=== PATIENT | female | born 1935 | race Caucasian/White ===

== ENCOUNTER 2021-02-13 19:39 | Inpatient (IN) ==
[2021-02-13] MEDS ORDERED: Ondansetron 4 MG/2 ML VIAL IVP PRN (21:46)
[2021-02-13] MEDS ORDERED: Naloxone 0.4 MG/ML INJ IVP PRN (21:46)
[2021-02-13] MEDS ORDERED: Acetaminophen 325 MG TABLET PO PRN (21:46)
[2021-02-13] MEDS ORDERED: Potassium Chloride Elixir 20 MEQ/15 ML UDC PO ONE (21:58)
[2021-02-13] MEDS ORDERED: 0.9 % Sodium Chloride 1,000 ML IVC SCH (22:00)
[2021-02-13] MEDS ORDERED: Perflutren Lipid Microsphere 1.3 ML in 0.9 % Sodium Chloride 8.7 ML IVP PRN (22:27)
[2021-02-13 22:45] LABS: INR 1.2; Prothrombin Time 13.5 Seconds (9.4-12.1)
[2021-02-14] MEDS ORDERED: *HR* Dextrose 50 % in Water (Vial) 50 ML VIAL IVP PRN (00:42)
[2021-02-14] MEDS ORDERED: D5% in Water 1,000 ML IVC PRN (00:42)
[2021-02-14] MEDS ORDERED: Dextrose Gel 15 GM/37.5 ML TUBE PO PRN ×2 (00:42)
[2021-02-14] MEDS: Melatonin 3 MG TABLET PO PRN ×2 (00:45→22:44)
[2021-02-14] MEDS: Acetaminophen 325 MG TABLET PO PRN ×3 (00:45→20:10)
[2021-02-14] MEDS: Potassium Chloride Elixir 20 MEQ/15 ML UDC PO ONE ×2 (00:45→00:47)
[2021-02-14 05:07] LABS: Mean Corpuscular Volume 93.6 fL (83.0-100.0)
[2021-02-14 05:09] LABS: Hematocrit 42.3 % (35.3-44.9); Hemoglobin 13.2 g/dL (11.5-15.4); Mean Corpuscular HGB Conc 31.2 g/dL (31.6-35.5); Mean Corpuscular Hemoglobin 29.2 pg (28.0-33.3); Red Blood Count 4.52 M/mcL (3.82-4.97); Red Cell Distribution Width 14.6 % (11.5-14.5); White Blood Count 3.7 K/mcL (4.3-11.1)
[2021-02-14 05:25] LABS: BUN/Creatinine Ratio 21 (6-26); Blood Urea Nitrogen 18 mg/dL (8-23); Calcium 8.8 mg/dL (8.6-10.3); Carbon Dioxide 23 mEq/L (23-29); Chloride 108 mEq/L (98-107); Glucose 274 mg/dL (70-105); Lactate Dehydrogenase 200 Units/L (140-271); Osmolality,Calculated 300 (280-300); Potassium 3.8 mEq/L (3.5-5.1); Sodium 139 mEq/L (136-145); eGFR For African Americans > 60 (> 60); eGFR For Non-African Americans > 60 (> 60)
[2021-02-14 06:15] LABS: Estimated Average Glucose 183 mg/dl
[2021-02-14] MEDS: cefTRIAXone 1,000 MG in 0.9 % Sodium Chloride Mini Bag 100 ML IVPB SCH (10:04)
[2021-02-14] MEDS: Azithromycin 500 MG in 0.9 % Sodium Chloride 250 ML IVPB SCH (10:04)
[2021-02-14] MEDS: Nystatin POWDER 30 GM BOTTLE TP SCH ×2 (10:23→20:53)
[2021-02-14] MEDS: Insulin LISPRO 300 UNITS/3 ML VIAL SUBQ SCH ×3 (10:32→17:33)
[2021-02-14] MEDS ORDERED: Baclofen 10 MG TABLET PO PRN (17:32)
[2021-02-14] MEDS: Primidone 50 MG TABLET PO SCH (20:09)
[2021-02-14] MEDS: Mirtazapine 15 MG TABLET PO SCH (20:10)
[2021-02-14] MEDS: Apixaban 5 MG TABLET PO SCH (20:11)
[2021-02-14] MEDS: Levothyroxine 25 MCG TABLET PO SCH (20:11)
[2021-02-14] MEDS: carvediloL 25 MG TABLET PO SCH (20:53)
[2021-02-14] MEDS: Insulin DETEMIR 100 UNIT/ML X5UNITS SUBQ SCH ×2 (20:54→22:24)
[2021-02-15] MEDS: Insulin LISPRO 300 UNITS/3 ML VIAL SUBQ SCH ×3 (08:30→16:50)
[2021-02-15] MEDS: carvediloL 25 MG TABLET PO SCH ×3 (09:00→16:53)
[2021-02-15] MEDS: Insulin DETEMIR 100 UNIT/ML X5UNITS SUBQ SCH ×2 (09:00→23:13)
[2021-02-15] MEDS: Fluorometholone OPTH 5 ML BOTTLE LEFT EYE SCH (11:44)
[2021-02-15] MEDS: Apixaban 5 MG TABLET PO SCH ×3 (11:44→23:10)
[2021-02-15] MEDS: Famotidine 20 MG TABLET PO SCH ×2 (11:44→16:54)
[2021-02-15] MEDS: Azithromycin 500 MG in 0.9 % Sodium Chloride 250 ML IVPB SCH ×2 (11:45→16:49)
[2021-02-15] MEDS: Nystatin POWDER 30 GM BOTTLE TP SCH ×3 (11:45→23:11)
[2021-02-15] MEDS: cefTRIAXone 1,000 MG in 0.9 % Sodium Chloride Mini Bag 100 ML IVPB SCH ×2 (11:46→16:48)
[2021-02-15] MEDS ORDERED: Benzonatate 100 MG CAPSULE PO PRN (17:14)
[2021-02-15] MEDS: Acetaminophen 325 MG TABLET PO PRN ×2 (18:26→23:10)
[2021-02-15] MEDS: Ipratropium 1 PUFF INHALER IH SCH (20:03)
[2021-02-15 20:06] LABS: Albumin 2.8 g/dL (3.5-5.7); Albumin/Globulin Ratio 1.2 (1.1-2.2); Bilirubin,Direct 0.1 mg/dL (0.0-0.2); Bilirubin,Indirect 0.2 mg/dL (0.0-1.0); Bilirubin,Total 0.3 mg/dL (0.3-1.0); Globulin 2.3 g/dL (2.4-3.5); Total Protein 5.1 g/dL (6.4-8.9)
[2021-02-15] MEDS: Mirtazapine 15 MG TABLET PO SCH (23:09)
[2021-02-15] MEDS: Primidone 50 MG TABLET PO SCH (23:09)
[2021-02-15] MEDS: Levothyroxine 25 MCG TABLET PO SCH (23:10)
[2021-02-15] MEDS: Melatonin 3 MG TABLET PO PRN (23:10)
[2021-02-16] MEDS: Ipratropium 1 PUFF INHALER IH SCH ×7 (00:08→23:29)
[2021-02-16] MEDS ORDERED: Haloperidol Lactate 5 MG/ML VIAL IM ONE (04:11)
[2021-02-16] MEDS ORDERED: *HR* LORazepam 2 MG/ML VIAL IVP ONE (04:35)
[2021-02-16] MEDS ORDERED: Remdesivir 200 MG in 0.9 % Sodium Chloride 100 ML IVPB ONE (07:40)
[2021-02-16] MEDS: Insulin LISPRO 300 UNITS/3 ML VIAL SUBQ SCH ×2 (08:30→11:28)
[2021-02-16] MEDS: cefTRIAXone 1,000 MG in 0.9 % Sodium Chloride Mini Bag 100 ML IVPB SCH (11:25)
[2021-02-16] MEDS: Azithromycin 500 MG in 0.9 % Sodium Chloride 250 ML IVPB SCH (11:26)
[2021-02-16] MEDS: Fluorometholone OPTH 5 ML BOTTLE LEFT EYE SCH (11:28)
[2021-02-16] MEDS: Apixaban 5 MG TABLET PO SCH ×2 (11:28→20:03)
[2021-02-16] MEDS: carvediloL 25 MG TABLET PO SCH (11:28)
[2021-02-16] MEDS: Insulin DETEMIR 100 UNIT/ML X5UNITS SUBQ SCH ×2 (11:28→22:30)
[2021-02-16] MEDS: Famotidine 20 MG TABLET PO SCH (11:29)
[2021-02-16] MEDS: Nystatin POWDER 30 GM BOTTLE TP SCH ×2 (11:29→22:30)
[2021-02-16 11:49] LABS: Hemoglobin 12.1 g/dL (11.5-15.4); Mean Corpuscular HGB Conc 31.3 g/dL (31.6-35.5); Mean Corpuscular Volume 93.7 fL (83.0-100.0)
[2021-02-16 11:51] LABS: Hematocrit 38.7 % (35.3-44.9); Immature Granulocytes % 0.5 % (0-4); Immature Platelets 7.5 % (1.1-6.1); Lymphocytes # 0.4 K/mcL (0.6-4.6); Lymphocytes % 9.4 %; Mean Corpuscular Hemoglobin 29.3 pg (28.0-33.3); Mean Platelet Volume 12.5 fL (9.4-12.4); Monocytes # 0.2 K/mcL (0.0-1.3); Neutrophils # 3.2 K/mcL (1.6-8.9); Platelet Count 114 K/mcL (140-400); Red Blood Count 4.13 M/mcL (3.82-4.97); Red Cell Distribution Width 14.8 % (11.5-14.5); Segmented Neutrophils % 86.1 %; White Blood Count 3.7 K/mcL (4.3-11.1)
[2021-02-16] MEDS: Mirtazapine 15 MG TABLET PO SCH (20:03)
[2021-02-16] MEDS: Primidone 50 MG TABLET PO SCH (20:03)
[2021-02-16] MEDS: Levothyroxine 25 MCG TABLET PO SCH (20:03)
[2021-02-16 23:06] LABS: Albumin 2.9 g/dL (3.5-5.7); Albumin/Globulin Ratio 1.1 (1.1-2.2); Bilirubin,Direct 0.1 mg/dL (0.0-0.2); Bilirubin,Indirect 0.3 mg/dL (0.0-1.0); Bilirubin,Total 0.4 mg/dL (0.3-1.0); Globulin 2.7 g/dL (2.4-3.5); Total Protein 5.6 g/dL (6.4-8.9)
[2021-02-16 23:08] LABS: BUN/Creatinine Ratio 31 (6-26); Blood Urea Nitrogen 21 mg/dL (8-23); Calcium 9.1 mg/dL (8.6-10.3); Carbon Dioxide 23 mEq/L (23-29); Chloride 107 mEq/L (98-107); Glucose 298 mg/dL (70-105); Osmolality,Calculated 304 (280-300); Potassium 3.4 mEq/L (3.5-5.1); Sodium 140 mEq/L (136-145); eGFR For African Americans > 60 (> 60); eGFR For Non-African Americans > 60 (> 60)
[2021-02-17] MEDS: Ipratropium 1 PUFF INHALER IH SCH ×5 (03:25→21:02)
[2021-02-17 06:52] LABS: Basophils % 0.1 %; Hematocrit 38.1 % (35.3-44.9); Hemoglobin 12.2 g/dL (11.5-15.4); Immature Granulocytes % 0.7 % (0-4); Lymphocytes # 0.3 K/mcL (0.6-4.6); Lymphocytes % 4.4 %; Mean Corpuscular Hemoglobin 29.8 pg (28.0-33.3); Mean Corpuscular Volume 93.2 fL (83.0-100.0); Mean Platelet Volume 11.5 fL (9.4-12.4); Monocytes # 0.2 K/mcL (0.0-1.3); Monocytes % 2.9 %; Neutrophils # 6.7 K/mcL (1.6-8.9); Platelet Count 149 K/mcL (140-400); Red Blood Count 4.09 M/mcL (3.82-4.97); Red Cell Distribution Width 14.6 % (11.5-14.5); Segmented Neutrophils % 91.9 %; White Blood Count 7.3 K/mcL (4.3-11.1)
[2021-02-17 07:01] LABS: Alanine Aminotransferase 16 Units/L (7-52); Albumin 2.9 g/dL (3.5-5.7); Albumin/Globulin Ratio 1.1 (1.1-2.2); Alkaline Phosphatase 48 Units/L (34-104); Aspartate Amino Transferase 28 Units/L (13-39); BUN/Creatinine Ratio 31 (6-26); Bilirubin,Direct 0.2 mg/dL (0.0-0.2); Bilirubin,Indirect 0.1 mg/dL (0.0-1.0); Bilirubin,Total 0.3 mg/dL (0.3-1.0); Blood Urea Nitrogen 20 mg/dL (8-23); Calcium 9.1 mg/dL (8.6-10.3); Carbon Dioxide 25 mEq/L (23-29); Chloride 106 mEq/L (98-107); Globulin 2.6 g/dL (2.4-3.5); Glucose 235 mg/dL (70-105); Osmolality,Calculated 298 (280-300); Potassium 3.3 mEq/L (3.5-5.1); Sodium 139 mEq/L (136-145); Total Protein 5.5 g/dL (6.4-8.9); eGFR For African Americans > 60 (> 60); eGFR For Non-African Americans > 60 (> 60)
[2021-02-17] MEDS ORDERED: Remdesivir 100 MG in 0.9 % Sodium Chloride 100 ML IVPB SCH (08:00)
[2021-02-17] MEDS: cefTRIAXone 1,000 MG in 0.9 % Sodium Chloride Mini Bag 100 ML IVPB SCH (08:24)
[2021-02-17] MEDS: Apixaban 5 MG TABLET PO SCH ×2 (08:25→23:11)
[2021-02-17] MEDS: Famotidine 20 MG TABLET PO SCH ×2 (08:25→17:06)
[2021-02-17] MEDS: carvediloL 25 MG TABLET PO SCH ×3 (08:25→17:06)
[2021-02-17] MEDS: Fluorometholone OPTH 5 ML BOTTLE LEFT EYE SCH (08:27)
[2021-02-17] MEDS: Insulin LISPRO 300 UNITS/3 ML VIAL SUBQ SCH ×4 (08:28→17:25)
[2021-02-17] MEDS: Nystatin POWDER 30 GM BOTTLE TP SCH ×2 (08:29→23:11)
[2021-02-17] MEDS: Remdesivir 100 MG in 0.9 % Sodium Chloride 100 ML IVPB SCH (11:23)
[2021-02-17] MEDS: Insulin DETEMIR 100 UNIT/ML X5UNITS SUBQ SCH ×2 (11:24→23:11)
[2021-02-17] MEDS ORDERED: Haloperidol Lactate 5 MG/ML VIAL IVP ONE ×2 (12:48→14:13)
[2021-02-17] MEDS: Azithromycin 500 MG in 0.9 % Sodium Chloride 250 ML IVPB SCH (13:02)
[2021-02-17] MEDS ORDERED: Furosemide 20 MG/2 ML VIAL IVP ONE (15:29)
[2021-02-17] MEDS ORDERED: Haloperidol Lactate 5 MG/ML VIAL IM ONE (20:24)
[2021-02-17] MEDS: Mirtazapine 15 MG TABLET PO SCH (23:11)
[2021-02-17] MEDS: Levothyroxine 25 MCG TABLET PO SCH (23:11)
[2021-02-17] MEDS: Primidone 50 MG TABLET PO SCH (23:11)
[2021-02-18 01:13] LABS: Basophils % 0.2 %; Hematocrit 40.3 % (35.3-44.9); Hemoglobin 12.6 g/dL (11.5-15.4); Immature Granulocytes % 0.7 % (0-4); Lymphocytes # 0.3 K/mcL (0.6-4.6); Lymphocytes % 5.5 %; Mean Corpuscular HGB Conc 31.3 g/dL (31.6-35.5); Mean Corpuscular Hemoglobin 29.2 pg (28.0-33.3); Mean Corpuscular Volume 93.5 fL (83.0-100.0); Mean Platelet Volume 11.6 fL (9.4-12.4); Monocytes # 0.2 K/mcL (0.0-1.3); Monocytes % 3.6 %; Neutrophils # 5.3 K/mcL (1.6-8.9); Platelet Count 162 K/mcL (140-400); Red Blood Count 4.31 M/mcL (3.82-4.97); Red Cell Distribution Width 14.7 % (11.5-14.5); White Blood Count 5.9 K/mcL (4.3-11.1)
[2021-02-18 01:35] LABS: Alanine Aminotransferase 16 Units/L (7-52); Albumin 2.7 g/dL (3.5-5.7); Alkaline Phosphatase 47 Units/L (34-104); Aspartate Amino Transferase 32 Units/L (13-39); BUN/Creatinine Ratio 36 (6-26); Bilirubin,Indirect 0.4 mg/dL (0.0-1.0); Bilirubin,Total 0.4 mg/dL (0.3-1.0); Blood Urea Nitrogen 19 mg/dL (8-23); Calcium 8.8 mg/dL (8.6-10.3); Carbon Dioxide 26 mEq/L (23-29); Chloride 109 mEq/L (98-107); Globulin 2.8 g/dL (2.4-3.5); Glucose 134 mg/dL (70-105); Osmolality,Calculated 296 (280-300); Potassium 3.7 mEq/L (3.5-5.1); Sodium 141 mEq/L (136-145); Total Protein 5.5 g/dL (6.4-8.9); eGFR For African Americans > 60 (> 60); eGFR For Non-African Americans > 60 (> 60)
[2021-02-18] MEDS: Ipratropium 1 PUFF INHALER IH SCH ×4 (04:28→22:45)
[2021-02-18] MEDS: Apixaban 5 MG TABLET PO SCH ×2 (07:56→19:47)
[2021-02-18] MEDS: carvediloL 25 MG TABLET PO SCH ×2 (07:56→16:42)
[2021-02-18] MEDS: Famotidine 20 MG TABLET PO SCH ×2 (07:56→16:42)
[2021-02-18] MEDS: cefTRIAXone 1,000 MG in 0.9 % Sodium Chloride Mini Bag 100 ML IVPB SCH (07:57)
[2021-02-18] MEDS: Azithromycin 500 MG in 0.9 % Sodium Chloride 250 ML IVPB SCH (07:58)
[2021-02-18] MEDS: Nystatin POWDER 30 GM BOTTLE TP SCH (07:59)
[2021-02-18] MEDS: Fluorometholone OPTH 5 ML BOTTLE LEFT EYE SCH (08:00)
[2021-02-18] MEDS: Insulin DETEMIR 100 UNIT/ML X5UNITS SUBQ SCH ×3 (08:02→20:11)
[2021-02-18] MEDS: Insulin LISPRO 300 UNITS/3 ML VIAL SUBQ SCH ×3 (08:02→16:43)
[2021-02-18] MEDS: Remdesivir 100 MG in 0.9 % Sodium Chloride 100 ML IVPB SCH (12:19)
[2021-02-18] MEDS: Mirtazapine 15 MG TABLET PO SCH (19:47)
[2021-02-18] MEDS: Levothyroxine 25 MCG TABLET PO SCH (19:47)
[2021-02-18] MEDS: Primidone 50 MG TABLET PO SCH (19:50)
[2021-02-18 23:13] LABS: ABG Base Excess 4 mEq/L (-2 to 3); ABG HCO3 27 mEq/L (21-27); ABG Oxygen Saturation 94 % (95-98); ABG PCO2 34 mmHg (35-45); ABG PO2 63 mmHg (85-104); ABG TCO2 28 mEq/L (20-26)
[2021-02-19] MEDS ORDERED: Haloperidol Lactate 5 MG/ML VIAL IVP ONE (00:44)
[2021-02-19] MEDS: Dexmedetomidine HCl 400 MCG/100 ML MLS IVC SCH ×3 (02:58→22:00)
[2021-02-19] MEDS: Ipratropium 1 PUFF INHALER IH SCH ×4 (03:56→23:28)
[2021-02-19] MEDS: Nystatin POWDER 30 GM BOTTLE TP SCH ×3 (07:46→20:50)
[2021-02-19] MEDS: carvediloL 25 MG TABLET PO SCH ×2 (08:32→16:17)
[2021-02-19] MEDS: QUEtiapine Fumarate 25 MG TABLET PO SCH ×2 (08:32→20:50)
[2021-02-19] MEDS: Apixaban 5 MG TABLET PO SCH ×2 (08:32→20:50)
[2021-02-19] MEDS: Famotidine 20 MG TABLET PO SCH ×2 (08:33→16:36)
[2021-02-19] MEDS: cefTRIAXone 1,000 MG in 0.9 % Sodium Chloride Mini Bag 100 ML IVPB SCH (08:34)
[2021-02-19] MEDS: Insulin LISPRO 300 UNITS/3 ML VIAL SUBQ SCH ×3 (08:35→16:19)
[2021-02-19] MEDS: Azithromycin 500 MG in 0.9 % Sodium Chloride 250 ML IVPB SCH (09:49)
[2021-02-19] MEDS: Insulin DETEMIR 100 UNIT/ML X5UNITS SUBQ SCH ×2 (09:50→20:43)
[2021-02-19 10:30] LABS: Hematocrit 39.2 % (35.3-44.9); Hemoglobin 12.7 g/dL (11.5-15.4); Lymphocytes # 0.3 K/mcL (0.6-4.6); Lymphocytes % 6.1 %; Mean Corpuscular HGB Conc 32.4 g/dL (31.6-35.5); Mean Corpuscular Hemoglobin 29.7 pg (28.0-33.3); Mean Corpuscular Volume 91.8 fL (83.0-100.0); Monocytes # 0.3 K/mcL (0.0-1.3); Monocytes % 5.3 %; Neutrophils # 4.3 K/mcL (1.6-8.9); Platelet Count 173 K/mcL (140-400); Red Blood Count 4.27 M/mcL (3.82-4.97); Segmented Neutrophils % 87.6 %; White Blood Count 4.9 K/mcL (4.3-11.1)
[2021-02-19 10:49] LABS: Albumin 2.7 g/dL (3.5-5.7); Bilirubin,Direct 0.1 mg/dL (0.0-0.2); Bilirubin,Indirect 0.3 mg/dL (0.0-1.0); Bilirubin,Total 0.4 mg/dL (0.3-1.0); Globulin 2.6 g/dL (2.4-3.5); Total Protein 5.3 g/dL (6.4-8.9)
[2021-02-19 10:50] LABS: BUN/Creatinine Ratio 40 (6-26); Blood Urea Nitrogen 19 mg/dL (8-23); Calcium 9.3 mg/dL (8.6-10.3); Carbon Dioxide 26 mEq/L (23-29); Chloride 107 mEq/L (98-107); Glucose 121 mg/dL (70-105); Osmolality,Calculated 294 (280-300); Potassium 3.3 mEq/L (3.5-5.1); Sodium 140 mEq/L (136-145); eGFR For African Americans > 60 (> 60); eGFR For Non-African Americans > 60 (> 60)
[2021-02-19] MEDS ORDERED: Haloperidol Lactate 5 MG/ML VIAL IVP STA (11:57)
[2021-02-19] MEDS: Fluorometholone OPTH 5 ML BOTTLE LEFT EYE SCH (15:20)
[2021-02-19] MEDS: Remdesivir 100 MG in 0.9 % Sodium Chloride 100 ML IVPB SCH (15:21)
[2021-02-19] MEDS ORDERED: Potassium Chloride 40 MEQ, Lidocaine 1% 2 ML in 0.9 % Sodium Chloride 500 ML IVPB ONE (16:49)
[2021-02-19] MEDS: Mirtazapine 15 MG TABLET PO SCH (20:50)
[2021-02-19] MEDS: Levothyroxine 25 MCG TABLET PO SCH (20:50)
[2021-02-19] MEDS: Primidone 50 MG TABLET PO SCH (20:50)
[2021-02-20] MEDS: Haloperidol Lactate 5 MG/ML VIAL IVP PRN ×3 (01:55→18:57)
[2021-02-20] MEDS: Ipratropium 1 PUFF INHALER IH SCH ×4 (04:41→21:20)
[2021-02-20] MEDS: Dexmedetomidine HCl 400 MCG/100 ML MLS IVC SCH ×5 (07:10→20:51)
[2021-02-20] MEDS: Insulin LISPRO 300 UNITS/3 ML VIAL SUBQ SCH ×3 (09:34→16:49)
[2021-02-20] MEDS: Insulin DETEMIR 100 UNIT/ML X5UNITS SUBQ SCH ×2 (09:35→21:35)
[2021-02-20] MEDS: cefTRIAXone 1,000 MG in 0.9 % Sodium Chloride Mini Bag 100 ML IVPB SCH (09:39)
[2021-02-20] MEDS: QUEtiapine Fumarate 25 MG TABLET PO SCH ×2 (10:08→20:38)
[2021-02-20] MEDS: Famotidine 20 MG TABLET PO SCH ×2 (10:08→16:31)
[2021-02-20] MEDS: carvediloL 25 MG TABLET PO SCH ×2 (10:08→16:31)
[2021-02-20] MEDS: Apixaban 5 MG TABLET PO SCH ×2 (10:09→20:39)
[2021-02-20] MEDS: Fluorometholone OPTH 5 ML BOTTLE LEFT EYE SCH (10:09)
[2021-02-20] MEDS: Nystatin POWDER 30 GM BOTTLE TP SCH ×2 (10:10→21:20)
[2021-02-20] MEDS: Azithromycin 500 MG in 0.9 % Sodium Chloride 250 ML IVPB SCH (10:28)
[2021-02-20 10:49] LABS: Albumin 2.6 g/dL (3.5-5.7); Bilirubin,Direct 0.1 mg/dL (0.0-0.2); Bilirubin,Indirect 0.3 mg/dL (0.0-1.0); Bilirubin,Total 0.4 mg/dL (0.3-1.0); Globulin 2.6 g/dL (2.4-3.5); Total Protein 5.2 g/dL (6.4-8.9)
[2021-02-20] MEDS: Remdesivir 100 MG in 0.9 % Sodium Chloride 100 ML IVPB SCH (11:18)
[2021-02-20] MEDS ORDERED: Haloperidol Lactate 5 MG/ML VIAL IVP ONE (14:03)
[2021-02-20] MEDS: Levothyroxine 25 MCG TABLET PO SCH (20:37)
[2021-02-20] MEDS: Mirtazapine 15 MG TABLET PO SCH (20:38)
[2021-02-20] MEDS: Primidone 50 MG TABLET PO SCH (20:39)
[2021-02-20 22:09] LABS: VBG HCO3 26 mEq/L (21-27); VBG PCO2 41 mmHg (41-51); VBG PH 7.42 pH Units (7.32-7.42); VBG PO2 145 mmHg (25-50)
[2021-02-21] MEDS: Dexmedetomidine HCl 400 MCG/100 ML MLS IVC SCH ×4 (00:10→14:22)
[2021-02-21 01:48] LABS: Basophils % 0.2 %; Hemoglobin 13.3 g/dL (11.5-15.4); Immature Granulocytes % 1.3 % (0-4); Lymphocytes # 0.2 K/mcL (0.6-4.6); Lymphocytes % 3.6 %; Mean Corpuscular HGB Conc 31.7 g/dL (31.6-35.5); Mean Corpuscular Volume 91.5 fL (83.0-100.0); Mean Platelet Volume 10.8 fL (9.4-12.4); Monocytes # 0.3 K/mcL (0.0-1.3); Monocytes % 5.4 %; Platelet Count 152 K/mcL (140-400); Red Blood Count 4.59 M/mcL (3.82-4.97); Red Cell Distribution Width 14.7 % (11.5-14.5); Segmented Neutrophils % 89.5 %; White Blood Count 5.6 K/mcL (4.3-11.1)
[2021-02-21 02:08] LABS: Alanine Aminotransferase 13 Units/L (7-52); Albumin 2.6 g/dL (3.5-5.7); Alkaline Phosphatase 73 Units/L (34-104); Aspartate Amino Transferase 13 Units/L (13-39); BUN/Creatinine Ratio 44 (6-26); Bilirubin,Direct 0.1 mg/dL (0.0-0.2); Bilirubin,Indirect 0.4 mg/dL (0.0-1.0); Bilirubin,Total 0.5 mg/dL (0.3-1.0); Blood Urea Nitrogen 18 mg/dL (8-23); Calcium 9.5 mg/dL (8.6-10.3); Carbon Dioxide 25 mEq/L (23-29); Chloride 107 mEq/L (98-107); Globulin 2.6 g/dL (2.4-3.5); Glucose 281 mg/dL (70-105); Osmolality,Calculated 300 (280-300); Potassium 3.7 mEq/L (3.5-5.1); Sodium 139 mEq/L (136-145); Total Protein 5.2 g/dL (6.4-8.9); eGFR For African Americans > 60 (> 60); eGFR For Non-African Americans > 60 (> 60)
[2021-02-21] MEDS: Ipratropium 1 PUFF INHALER IH SCH ×4 (04:04→22:49)
[2021-02-21] MEDS: Haloperidol Lactate 5 MG/ML VIAL IVP PRN ×3 (04:50→12:13)
[2021-02-21] MEDS: Azithromycin 500 MG in 0.9 % Sodium Chloride 250 ML IVPB SCH (07:46)
[2021-02-21] MEDS: cefTRIAXone 1,000 MG in 0.9 % Sodium Chloride Mini Bag 100 ML IVPB SCH (07:51)
[2021-02-21] MEDS: carvediloL 25 MG TABLET PO SCH ×2 (07:58→17:13)
[2021-02-21] MEDS: QUEtiapine Fumarate 25 MG TABLET PO SCH (07:59)
[2021-02-21] MEDS: Famotidine 20 MG TABLET PO SCH ×2 (07:59→16:19)
[2021-02-21] MEDS: Insulin DETEMIR 100 UNIT/ML X5UNITS SUBQ SCH (07:59)
[2021-02-21] MEDS: Apixaban 5 MG TABLET PO SCH (07:59)
[2021-02-21] MEDS: Insulin LISPRO 300 UNITS/3 ML VIAL SUBQ SCH ×3 (08:12→16:17)
[2021-02-21] MEDS: Nystatin POWDER 30 GM BOTTLE TP SCH ×2 (08:13→21:00)
[2021-02-21] MEDS: Fluorometholone OPTH 5 ML BOTTLE LEFT EYE SCH (08:13)
[2021-02-21] MEDS ORDERED: *HR* Midazolam HCl 5 MG/5 ML VIAL IVP ONE ×2 (11:28→16:48)
[2021-02-21] MEDS ORDERED: *HR* Rocuronium Bromide 50 MG/5 ML VIAL IVP ONE (11:28)
[2021-02-21] MEDS ORDERED: *HR* Succinylcholine 200 MG/10 ML VIAL IVP ONE (11:28)
[2021-02-21] MEDS ORDERED: *HR* Etomidate 20 MG/10 ML AMPUL IVP ONE (11:28)
[2021-02-21] MEDS ORDERED: Lidocaine -MPF 1% 5 ML AMPUL INFILT ONE (14:53)
[2021-02-21] MEDS ORDERED: *HR* LORazepam 2 MG/ML VIAL IVP ONE (15:04)
[2021-02-21] MEDS ORDERED: *HR* LORazepam 2 MG/ML VIAL ONE (15:06)
[2021-02-21] MEDS ORDERED: Artificial Tears SOLN 15 ML BOTTLE BOTH EYES PRN (16:51)
[2021-02-21] MEDS: FentaNYL (PF) 1,000 MCG/100 ML IV.SOLN IVC SCH (17:14)
[2021-02-21] MEDS: Pantoprazole 40 MG VIAL IVP SCH (18:04)
[2021-02-21 18:42] LABS: ABG Base Excess 4 mEq/L (-2 to 3); ABG HCO3 29 mEq/L (21-27); ABG Oxygen Saturation 83 % (95-98); ABG PCO2 47 mmHg (35-45); ABG PH 7.41 pH Units (7.32-7.45); ABG PO2 48 mmHg (85-104); ABG TCO2 31 mEq/L (20-26); Blood Gas VT 350 cc
[2021-02-21] MEDS: Cisatracurium 200 MG in 0.9 % Sodium Chloride 180 ML IVC SCH (20:14)
[2021-02-21] MEDS: Chlorhexidine Rinse 15 ML MOUTHWASH MM SCH (22:10)
[2021-02-21] MEDS: Artificial Tears SOLN 15 ML BOTTLE BOTH EYES SCH (22:10)
[2021-02-21 23:04] LABS: ABG Base Excess 3 mEq/L (-2 to 3); ABG HCO3 29 mEq/L (21-27); ABG Oxygen Saturation 96 % (95-98); ABG PCO2 46 mmHg (35-45); ABG PH 7.41 pH Units (7.32-7.45); ABG PO2 79 mmHg (85-104); ABG TCO2 30 mEq/L (20-26); Blood Gas Modality ASSIST CONTROL; Blood Gas VT 350 cc
[2021-02-22] MEDS: Artificial Tears SOLN 15 ML BOTTLE BOTH EYES SCH ×7 (00:01→23:33)
[2021-02-22] MEDS: Mirtazapine 15 MG TABLET PO SCH ×2 (00:01→19:32)
[2021-02-22] MEDS: QUEtiapine Fumarate 25 MG TABLET PO SCH ×3 (00:01→19:32)
[2021-02-22] MEDS: Insulin DETEMIR 100 UNIT/ML X5UNITS SUBQ SCH ×3 (00:04→19:32)
[2021-02-22] MEDS: Levothyroxine 25 MCG TABLET PO SCH (00:18)
[2021-02-22] MEDS: Ipratropium 1 PUFF INHALER IH SCH ×4 (03:45→22:30)
[2021-02-22 03:54] LABS: Basophils % 0.2 %; Hematocrit 41.8 % (35.3-44.9); Immature Granulocytes % 1.5 % (0-4); Lymphocytes # 0.3 K/mcL (0.6-4.6); Lymphocytes % 2.7 %; Mean Corpuscular HGB Conc 31.1 g/dL (31.6-35.5); Mean Corpuscular Hemoglobin 28.9 pg (28.0-33.3); Mean Corpuscular Volume 92.9 fL (83.0-100.0); Mean Platelet Volume 11.1 fL (9.4-12.4); Monocytes # 0.5 K/mcL (0.0-1.3); Monocytes % 4.4 %; Neutrophils # 10.4 K/mcL (1.6-8.9); Platelet Count 152 K/mcL (140-400); Red Cell Distribution Width 14.9 % (11.5-14.5); Segmented Neutrophils % 91.2 %
[2021-02-22 04:14] LABS: Alanine Aminotransferase 11 Units/L (7-52); Albumin 2.4 g/dL (3.5-5.7); Albumin/Globulin Ratio 1.1 (1.1-2.2); Alkaline Phosphatase 71 Units/L (34-104); Aspartate Amino Transferase 13 Units/L (13-39); BUN/Creatinine Ratio 48 (6-26); BUN/Creatinine Ratio 50 (6-26); Bilirubin,Total 0.6 mg/dL (0.3-1.0); Blood Urea Nitrogen 21 mg/dL (8-23); Blood Urea Nitrogen 22 mg/dL (8-23); C-Reactive Protein 108 mg/L (Less than 10); Calcium 9.9 mg/dL (8.6-10.3); Carbon Dioxide 29 mEq/L (23-29); Chloride 106 mEq/L (98-107); Chloride 107 mEq/L (98-107); Globulin 2.1 g/dL (2.4-3.5); Glucose 131 mg/dL (70-105); Glucose 134 mg/dL (70-105); Osmolality,Calculated 297 (280-300); Potassium 3.5 mEq/L (3.5-5.1); Sodium 141 mEq/L (136-145); Total Protein 4.5 g/dL (6.4-8.9); eGFR For African Americans > 60 (> 60); eGFR For Non-African Americans > 60 (> 60)
[2021-02-22] MEDS: FentaNYL (PF) 1,000 MCG/100 ML IV.SOLN IVC SCH ×2 (04:15→17:35)
[2021-02-22 04:30] LABS: White Blood Count 11.4 K/mcL (4.3-11.1)
[2021-02-22 04:43] LABS: ABG Base Excess 4 mEq/L (-2 to 3); ABG HCO3 29 mEq/L (21-27); ABG Oxygen Saturation 96 % (95-98); ABG PCO2 45 mmHg (35-45); ABG PH 7.42 pH Units (7.32-7.45); ABG PO2 80 mmHg (85-104); ABG TCO2 31 mEq/L (20-26); Blood Gas Modality ASSIST CONTROL; Blood Gas VT 350 cc
[2021-02-22] MEDS: Pantoprazole 40 MG VIAL IVP SCH ×2 (05:41→18:43)
[2021-02-22] MEDS: Famotidine 20 MG TABLET PO SCH (07:53)
[2021-02-22] MEDS: Chlorhexidine Rinse 15 ML MOUTHWASH MM SCH ×2 (07:54→19:33)
[2021-02-22] MEDS: carvediloL 25 MG TABLET PO SCH (07:54)
[2021-02-22] MEDS: Apixaban 5 MG TABLET PO SCH ×3 (07:55→19:32)
[2021-02-22] MEDS: Fluorometholone OPTH 5 ML BOTTLE LEFT EYE SCH (08:32)
[2021-02-22] MEDS: Insulin LISPRO 300 UNITS/3 ML VIAL SUBQ SCH ×6 (08:32→23:49)
[2021-02-22] MEDS: Nystatin POWDER 30 GM BOTTLE TP SCH ×2 (08:51→19:52)
[2021-02-22] MEDS ORDERED: Pantoprazole 40 MG VIAL IVP SCH (09:00)
[2021-02-22] MEDS ORDERED: Furosemide 40 MG/4 ML VIAL IVP ONE (12:04)
[2021-02-22] MEDS: Cisatracurium 200 MG in 0.9 % Sodium Chloride 180 ML IVC SCH (19:28)
[2021-02-22] MEDS: Primidone 50 MG TABLET PO SCH ×2 (19:32)
[2021-02-23] MEDS: Artificial Tears SOLN 15 ML BOTTLE BOTH EYES SCH ×6 (03:54→23:47)
[2021-02-23] MEDS: Insulin LISPRO 300 UNITS/3 ML VIAL SUBQ SCH ×6 (03:54→23:59)
[2021-02-23] MEDS: Ipratropium 1 PUFF INHALER IH SCH ×4 (04:06→22:25)
[2021-02-23 04:15] LABS: Basophils % 0.2 %; Hematocrit 43.1 % (35.3-44.9); Lymphocytes # 0.3 K/mcL (0.6-4.6); Lymphocytes % 1.5 %; Mean Corpuscular HGB Conc 30.2 g/dL (31.6-35.5); Mean Corpuscular Hemoglobin 28.7 pg (28.0-33.3); Mean Corpuscular Volume 95.1 fL (83.0-100.0); Mean Platelet Volume 10.9 fL (9.4-12.4); Monocytes # 0.6 K/mcL (0.0-1.3); Monocytes % 3.3 %; Neutrophils # 17.6 K/mcL (1.6-8.9); Platelet Count 151 K/mcL (140-400); Red Blood Count 4.53 M/mcL (3.82-4.97); Red Cell Distribution Width 15.3 % (11.5-14.5)
[2021-02-23 04:16] LABS: White Blood Count 18.9 K/mcL (4.3-11.1)
[2021-02-23 04:33] LABS: BUN/Creatinine Ratio 39 (6-26); Blood Urea Nitrogen 25 mg/dL (8-23); Calcium 10.6 mg/dL (8.6-10.3); Carbon Dioxide 33 mEq/L (23-29); Chloride 103 mEq/L (98-107); Glucose 252 mg/dL (70-105); Osmolality,Calculated 303 (280-300); Sodium 140 mEq/L (136-145); eGFR For African Americans > 60 (> 60); eGFR For Non-African Americans > 60 (> 60)
[2021-02-23 05:38] LABS: ABG Base Excess 5 mEq/L (-2 to 3); ABG HCO3 31 mEq/L (21-27); ABG Oxygen Saturation 94 % (95-98); ABG PCO2 47 mmHg (35-45); ABG PH 7.43 pH Units (7.32-7.45); ABG PO2 70 mmHg (85-104); ABG TCO2 32 mEq/L (20-26); Blood Gas Modality ASSIST CONTROL; Blood Gas VT 350 cc
[2021-02-23] MEDS: Pantoprazole 40 MG VIAL IVP SCH ×2 (05:46→16:12)
[2021-02-23] MEDS: Chlorhexidine Rinse 15 ML MOUTHWASH MM SCH ×2 (07:33→20:31)
[2021-02-23] MEDS: Apixaban 5 MG TABLET PO SCH (07:33)
[2021-02-23] MEDS: QUEtiapine Fumarate 25 MG TABLET PO SCH ×2 (07:34→20:31)
[2021-02-23] MEDS: Insulin DETEMIR 100 UNIT/ML X5UNITS SUBQ SCH ×2 (08:07→18:51)
[2021-02-23] MEDS: Fluorometholone OPTH 5 ML BOTTLE LEFT EYE SCH (08:07)
[2021-02-23] MEDS: FentaNYL (PF) 1,000 MCG/100 ML IV.SOLN IVC SCH ×2 (09:04→20:31)
[2021-02-23] MEDS: Nystatin POWDER 30 GM BOTTLE TP SCH ×2 (09:07→21:02)
[2021-02-23] MEDS ORDERED: Furosemide 40 MG/4 ML VIAL IVP ONE (11:56)
[2021-02-23 15:37] LABS: Red Cell Distribution Width 15.4 % (11.5-14.5)
[2021-02-23 15:39] LABS: Hematocrit 41.9 % (35.3-44.9); Hemoglobin 12.7 g/dL (11.5-15.4); Immature Platelets 7.9 % (1.1-6.1); Mean Corpuscular HGB Conc 30.3 g/dL (31.6-35.5); Mean Corpuscular Hemoglobin 29.1 pg (28.0-33.3); Mean Corpuscular Volume 95.9 fL (83.0-100.0); Mean Platelet Volume 11.3 fL (9.4-12.4); Red Blood Count 4.37 M/mcL (3.82-4.97); White Blood Count 17.5 K/mcL (4.3-11.1)
[2021-02-23] MEDS ORDERED: Insulin LISPRO 300 UNITS/3 ML VIAL SUBQ SCH (16:25)
[2021-02-23] MEDS: Cisatracurium 200 MG in 0.9 % Sodium Chloride 180 ML IVC SCH (16:29)
[2021-02-23 18:10] LABS: INR 1.6; Prothrombin Time 18.3 Seconds (9.4-12.1)
[2021-02-23 18:13] LABS: Activated Partial Thrombo Time 25.8 Seconds (26.0-36.0)
[2021-02-23] MEDS: Mirtazapine 15 MG TABLET PO SCH (20:31)
[2021-02-23] MEDS: Furosemide 40 MG/4 ML VIAL IVP SCH (20:32)
[2021-02-23] MEDS: Primidone 50 MG TABLET PO SCH (20:32)
[2021-02-23] MEDS ORDERED: Heparin 25,000UNIT/250ML 1/2NS 25,000 UNIT/250 ML IV.SOLN IVC SCH (21:00)
[2021-02-23] MEDS ORDERED: *HR* Heparin 5,000 UNIT/ML VIAL IVP PRN (21:00)
[2021-02-23] MEDS: Heparin 25,000UNIT/250ML 1/2NS 25,000 UNIT/250 ML IV.SOLN IVC SCH (21:05)
[2021-02-24] MEDS: Insulin LISPRO 300 UNITS/3 ML VIAL SUBQ SCH ×5 (03:37→20:21)
[2021-02-24] MEDS: Artificial Tears SOLN 15 ML BOTTLE BOTH EYES SCH ×6 (03:37→23:53)
[2021-02-24 03:48] LABS: Basophils % 0.2 %; Hemoglobin 12.1 g/dL (11.5-15.4); Immature Granulocytes % 3.6 % (0-4); Lymphocytes # 0.2 K/mcL (0.6-4.6); Lymphocytes % 1.1 %; Mean Corpuscular HGB Conc 29.5 g/dL (31.6-35.5); Mean Corpuscular Hemoglobin 28.7 pg (28.0-33.3); Mean Corpuscular Volume 97.4 fL (83.0-100.0); Mean Platelet Volume 11.7 fL (9.4-12.4); Monocytes # 0.8 K/mcL (0.0-1.3); Monocytes % 4.3 %; Neutrophils # 17.8 K/mcL (1.6-8.9); Platelet Count 158 K/mcL (140-400); Red Blood Count 4.21 M/mcL (3.82-4.97); Red Cell Distribution Width 15.4 % (11.5-14.5); Segmented Neutrophils % 90.8 %; White Blood Count 19.6 K/mcL (4.3-11.1)
[2021-02-24] MEDS: Ipratropium 1 PUFF INHALER IH SCH ×4 (03:55→22:39)
[2021-02-24 04:06] LABS: Alanine Aminotransferase 6 Units/L (7-52); Albumin 2.3 g/dL (3.5-5.7); Albumin/Globulin Ratio 0.9 (1.1-2.2); Alkaline Phosphatase 72 Units/L (34-104); Aspartate Amino Transferase 8 Units/L (13-39); BUN/Creatinine Ratio 40 (6-26); Bilirubin,Total 0.4 mg/dL (0.3-1.0); Blood Urea Nitrogen 31 mg/dL (8-23); C-Reactive Protein 261 mg/L (Less than 10); Calcium 10.8 mg/dL (8.6-10.3); Carbon Dioxide 33 mEq/L (23-29); Chloride 103 mEq/L (98-107); Globulin 2.7 g/dL (2.4-3.5); Glucose 373 mg/dL (70-105); Osmolality,Calculated 310 (280-300); Potassium 4.3 mEq/L (3.5-5.1); Sodium 139 mEq/L (136-145); eGFR For African Americans > 60 (> 60); eGFR For Non-African Americans > 60 (> 60)
[2021-02-24 04:12] LABS: Activated Partial Thrombo Time 113.9 Seconds (26.0-36.0)
[2021-02-24 04:33] LABS: ABG Base Excess 4 mEq/L (-2 to 3); ABG HCO3 32 mEq/L (21-27); ABG Oxygen Saturation 89 % (95-98); ABG PCO2 59 mmHg (35-45); ABG PH 7.34 pH Units (7.32-7.45); ABG PO2 62 mmHg (85-104); ABG TCO2 34 mEq/L (20-26); Blood Gas VT 350 cc
[2021-02-24] MEDS: Pantoprazole 40 MG VIAL IVP SCH ×2 (05:09→16:30)
[2021-02-24 06:09] LABS: ABG Base Excess 2 mEq/L (-2 to 3); ABG HCO3 27 mEq/L (21-27); ABG Oxygen Saturation 93 % (95-98); ABG PCO2 42 mmHg (35-45); ABG PH 7.42 pH Units (7.32-7.45); ABG PO2 66 mmHg (85-104); ABG TCO2 29 mEq/L (20-26); Blood Gas Modality ASSIST CONTROL; Blood Gas VT 350 cc
[2021-02-24] MEDS: Chlorhexidine Rinse 15 ML MOUTHWASH MM SCH ×2 (07:40→19:55)
[2021-02-24] MEDS: QUEtiapine Fumarate 25 MG TABLET PO SCH ×2 (07:40→19:49)
[2021-02-24] MEDS: Furosemide 40 MG/4 ML VIAL IVP SCH ×2 (07:44→19:49)
[2021-02-24] MEDS: Insulin DETEMIR 100 UNIT/ML X5UNITS SUBQ SCH ×2 (07:59→19:53)
[2021-02-24] MEDS: Nystatin POWDER 30 GM BOTTLE TP SCH ×2 (07:59→19:49)
[2021-02-24] MEDS: Fluorometholone OPTH 5 ML BOTTLE LEFT EYE SCH (07:59)
[2021-02-24] MEDS: FentaNYL (PF) 1,000 MCG/100 ML IV.SOLN IVC SCH ×2 (08:30→18:38)
[2021-02-24] MEDS: Dexmedetomidine HCl 400 MCG/100 ML MLS IVC SCH (08:46)
[2021-02-24 12:35] LABS: Magnesium 1.8 mg/dL (1.6-2.6); Phosphorous 2.3 mg/dL (2.7-4.5)
[2021-02-24] MEDS ORDERED: Magnesium Sulfate 1 GM/102 ML PIGGYBACK IVPB ONE ×2 (12:53→18:07)
[2021-02-24] MEDS: Cisatracurium 200 MG in 0.9 % Sodium Chloride 180 ML IVC SCH (16:13)
[2021-02-24] MEDS: *HR* Heparin 5,000 UNIT/ML VIAL IVP PRN (17:24)
[2021-02-24] MEDS: Docusate Oral Soln 100 MG/10 ML UDC GTUBE SCH (19:48)
[2021-02-24] MEDS: Mirtazapine 15 MG TABLET PO SCH (19:48)
[2021-02-24] MEDS: Primidone 50 MG TABLET PO SCH (19:49)
[2021-02-25] MEDS: Insulin LISPRO 300 UNITS/3 ML VIAL SUBQ SCH ×7 (00:13→23:55)
[2021-02-25] MEDS: Heparin 25,000UNIT/250ML 1/2NS 25,000 UNIT/250 ML IV.SOLN IVC SCH ×2 (00:14→19:48)
[2021-02-25 03:53] LABS: Hematocrit 34.5 % (35.3-44.9); Mean Corpuscular HGB Conc 30.1 g/dL (31.6-35.5); Mean Corpuscular Hemoglobin 29.5 pg (28.0-33.3); Mean Platelet Volume 12.1 fL (9.4-12.4); Platelet Count 164 K/mcL (140-400); Red Blood Count 3.52 M/mcL (3.82-4.97); Red Cell Distribution Width 15.2 % (11.5-14.5); White Blood Count 19.1 K/mcL (4.3-11.1)
[2021-02-25 03:55] LABS: VBG Ionized Calcium 1.59 mmol/L (1.15-1.35)
[2021-02-25 03:58] LABS: Hemoglobin 10.4 g/dL (11.5-15.4)
[2021-02-25] MEDS: Artificial Tears SOLN 15 ML BOTTLE BOTH EYES SCH ×6 (04:02→23:55)
[2021-02-25 04:16] LABS: BUN/Creatinine Ratio 57 (6-26); Blood Urea Nitrogen 45 mg/dL (8-23); Calcium 10.8 mg/dL (8.6-10.3); Carbon Dioxide 34 mEq/L (23-29); Chloride 102 mEq/L (98-107); Glucose 298 mg/dL (70-105); Magnesium 2.3 mg/dL (1.6-2.6); Osmolality,Calculated 309 (280-300); Phosphorous 2.3 mg/dL (2.7-4.5); Potassium 5.4 mEq/L (3.5-5.1); Sodium 138 mEq/L (136-145); eGFR For African Americans > 60 (> 60); eGFR For Non-African Americans > 60 (> 60)
[2021-02-25] MEDS: Ipratropium 1 PUFF INHALER IH SCH ×4 (04:56→22:33)
[2021-02-25 05:43] LABS: ABG Base Excess 6 mEq/L (-2 to 3); ABG HCO3 33 mEq/L (21-27); ABG Oxygen Saturation 96 % (95-98); ABG PCO2 55 mmHg (35-45); ABG PH 7.39 pH Units (7.32-7.45); ABG PO2 89 mmHg (85-104); ABG TCO2 35 mEq/L (20-26); Blood Gas Modality ASSIST CONTROL; Blood Gas VT 350 cc
[2021-02-25] MEDS: Pantoprazole 40 MG VIAL IVP SCH ×2 (06:10→17:26)
[2021-02-25] MEDS ORDERED: Furosemide 40 MG/4 ML VIAL IVP ONE (07:17)
[2021-02-25] MEDS: Chlorhexidine Rinse 15 ML MOUTHWASH MM SCH ×2 (08:38→20:06)
[2021-02-25] MEDS: Docusate Oral Soln 100 MG/10 ML UDC GTUBE SCH ×2 (08:38→20:07)
[2021-02-25] MEDS: QUEtiapine Fumarate 25 MG TABLET PO SCH ×2 (08:39→20:08)
[2021-02-25] MEDS: Nystatin POWDER 30 GM BOTTLE TP SCH ×2 (08:42→20:10)
[2021-02-25] MEDS: Furosemide 40 MG/4 ML VIAL IVP SCH ×2 (08:43→20:09)
[2021-02-25] MEDS: Insulin DETEMIR 100 UNIT/ML X5UNITS SUBQ SCH ×2 (08:53→20:14)
[2021-02-25] MEDS: Fluorometholone OPTH 5 ML BOTTLE LEFT EYE SCH (09:15)
[2021-02-25] MEDS: FentaNYL (PF) 1,000 MCG/100 ML IV.SOLN IVC SCH ×2 (09:15→21:29)
[2021-02-25] MEDS: Dexmedetomidine HCl 400 MCG/100 ML MLS IVC SCH (10:55)
[2021-02-25] MEDS: Cisatracurium 200 MG in 0.9 % Sodium Chloride 180 ML IVC SCH (12:44)
[2021-02-25 12:55] LABS: Basophils # 0.1 K/mcL (0.0-0.2); Basophils % 0.3 %; Eosinophils % 0.2 %; Hematocrit 33.5 % (35.3-44.9); Hemoglobin 9.8 g/dL (11.5-15.4); Lymphocytes # 0.2 K/mcL (0.6-4.6); Lymphocytes % 1.1 %; Mean Corpuscular HGB Conc 29.3 g/dL (31.6-35.5); Mean Corpuscular Hemoglobin 28.7 pg (28.0-33.3); Mean Corpuscular Volume 98.2 fL (83.0-100.0); Mean Platelet Volume 12.3 fL (9.4-12.4); Monocytes # 0.9 K/mcL (0.0-1.3); Monocytes % 4.7 %; Platelet Count 161 K/mcL (140-400); Red Blood Count 3.41 M/mcL (3.82-4.97); Red Cell Distribution Width 15.2 % (11.5-14.5); Segmented Neutrophils % 90.7 %; White Blood Count 18.7 K/mcL (4.3-11.1)
[2021-02-25 13:20] LABS: BUN/Creatinine Ratio 64 (6-26); Blood Urea Nitrogen 52 mg/dL (8-23); Calcium 11.4 mg/dL (8.6-10.3); Carbon Dioxide 35 mEq/L (23-29); Chloride 101 mEq/L (98-107); Glucose 243 mg/dL (70-105); Osmolality,Calculated 306 (280-300); Potassium 5.5 mEq/L (3.5-5.1); Sodium 137 mEq/L (136-145); eGFR For African Americans > 60 (> 60); eGFR For Non-African Americans > 60 (> 60)
[2021-02-25 17:51] LABS: Hematocrit 33.8 % (35.3-44.9); Hemoglobin 10.1 g/dL (11.5-15.4); Mean Corpuscular HGB Conc 29.9 g/dL (31.6-35.5); Mean Corpuscular Hemoglobin 29.2 pg (28.0-33.3); Mean Corpuscular Volume 97.7 fL (83.0-100.0); Mean Platelet Volume 12.2 fL (9.4-12.4); Platelet Count 178 K/mcL (140-400); Red Blood Count 3.46 M/mcL (3.82-4.97); Red Cell Distribution Width 15.1 % (11.5-14.5); White Blood Count 23.4 K/mcL (4.3-11.1)
[2021-02-25 17:58] LABS: Activated Partial Thrombo Time 63.4 Seconds (26.0-36.0)
[2021-02-25 18:08] LABS: Lymphocytes # 0.5 K/mcL (0.6-4.6); Monocytes # 0.9 K/mcL (0.0-1.3); Neutrophils # 21.5 K/mcL (1.6-8.9)
[2021-02-25 18:09] LABS: Platelet Estimate Normal (Normal)
[2021-02-25] MEDS: SODIUM ZIRCONIUM CYCLOSILICATE 5 GM POWD.PACK PO SCH (18:37)
[2021-02-25 18:41] LABS: INR 1.2; Prothrombin Time 13.9 Seconds (9.4-12.1)
[2021-02-25] MEDS: Primidone 50 MG TABLET PO SCH (20:07)
[2021-02-25] MEDS: Mirtazapine 15 MG TABLET PO SCH (20:08)
[2021-02-25] MEDS ORDERED: Norepinephrine 4 MG/254 ML IV.SOLN IVC SCH (21:00)
[2021-02-26] MEDS ORDERED: Phenylephrine 10 MG in 0.9 % Sodium Chloride 250 ML IVC SCH (03:30)
[2021-02-26] MEDS: Ipratropium 1 PUFF INHALER IH SCH ×3 (03:44→15:55)
[2021-02-26] MEDS: Artificial Tears SOLN 15 ML BOTTLE BOTH EYES SCH ×4 (04:08→16:16)
[2021-02-26] MEDS: Insulin LISPRO 300 UNITS/3 ML VIAL SUBQ SCH ×4 (04:43→16:18)
[2021-02-26 04:57] LABS: ABG Base Excess 6 mEq/L (-2 to 3); ABG HCO3 32 mEq/L (21-27); ABG Oxygen Saturation 96 % (95-98); ABG PCO2 54 mmHg (35-45); ABG PH 7.38 pH Units (7.32-7.45); ABG PO2 83 mmHg (85-104); ABG TCO2 34 mEq/L (20-26); Blood Gas VT 350 cc
[2021-02-26] MEDS: Cisatracurium 200 MG in 0.9 % Sodium Chloride 180 ML IVC SCH (05:03)
[2021-02-26] MEDS: Pantoprazole 40 MG VIAL IVP SCH ×2 (05:04→17:55)
[2021-02-26] MEDS: Phenylephrine 50 MG in 0.9 % Sodium Chloride 250 ML IVC SCH ×3 (05:07→16:17)
[2021-02-26 05:19] LABS: Nucleated Red Blood Cells 0.1 /100 WBC (0)
[2021-02-26 05:20] LABS: Hematocrit 32.5 % (35.3-44.9); Hemoglobin 9.6 g/dL (11.5-15.4); Mean Corpuscular HGB Conc 29.5 g/dL (31.6-35.5); Mean Corpuscular Hemoglobin 28.9 pg (28.0-33.3); Mean Corpuscular Volume 97.9 fL (83.0-100.0); Platelet Count 227 K/mcL (140-400); Red Blood Count 3.32 M/mcL (3.82-4.97); Red Cell Distribution Width 15.2 % (11.5-14.5)
[2021-02-26 05:34] LABS: BUN/Creatinine Ratio 80 (6-26); Blood Urea Nitrogen 59 mg/dL (8-23); Calcium 10.7 mg/dL (8.6-10.3); Carbon Dioxide 33 mEq/L (23-29); Chloride 101 mEq/L (98-107); Glucose 153 mg/dL (70-105); Osmolality,Calculated 304 (280-300); Potassium 5.6 mEq/L (3.5-5.1); Sodium 137 mEq/L (136-145); eGFR For African Americans > 60 (> 60); eGFR For Non-African Americans > 60 (> 60)
[2021-02-26] MEDS: *HR* Heparin 5,000 UNIT/ML VIAL IVP PRN (05:51)
[2021-02-26 05:58] LABS: White Blood Count 36.3 K/mcL (4.3-11.1)
[2021-02-26 06:22] LABS: Lymphocytes # 1.5 K/mcL (0.6-4.6); Monocytes # 1.5 K/mcL (0.0-1.3); Neutrophils # 33.4 K/mcL (1.6-8.9); Platelet Estimate Normal (Normal)
[2021-02-26 06:23] LABS: Reactive Lymphocytes Present (Not Present)
[2021-02-26] MEDS: Chlorhexidine Rinse 15 ML MOUTHWASH MM SCH (07:48)
[2021-02-26] MEDS: Docusate Oral Soln 100 MG/10 ML UDC GTUBE SCH (07:48)
[2021-02-26] MEDS: Furosemide 40 MG/4 ML VIAL IVP SCH (07:49)
[2021-02-26] MEDS: SODIUM ZIRCONIUM CYCLOSILICATE 5 GM POWD.PACK PO SCH (07:49)
[2021-02-26] MEDS: QUEtiapine Fumarate 25 MG TABLET PO SCH (07:50)
[2021-02-26] MEDS: Nystatin POWDER 30 GM BOTTLE TP SCH (07:51)
[2021-02-26] MEDS: Insulin DETEMIR 100 UNIT/ML X5UNITS SUBQ SCH (07:51)
[2021-02-26] MEDS: Fluorometholone OPTH 5 ML BOTTLE LEFT EYE SCH (07:52)
[2021-02-26] MEDS: Dexmedetomidine HCl 400 MCG/100 ML MLS IVC SCH (07:52)
[2021-02-26 09:36] LABS: Bacteria,Urine Few per hpf (None-Few); Bilirubin,Urine Negative (Negative); Blood,Urine Trace (Negative); Budding Yeast,Urine Many per hpf (None Seen); Clarity,Urine Turbid (Clear); Color,Urine Yellow (Yellow); Glucose,Urine (UA) Normal (Normal); Granular Casts,Urine Few per lpf (None Seen); Hyaline Casts,Urine Many per lpf (None Seen); Ketones,Urine Negative (Negative); Leukocyte Esterase,Urine Moderate (Negative); Mucus,Urine Few per lpf (None-Few); Nitrite,Urine Negative (Negative); PH,Urine 5.5 pH Units (5.0-8.0); Protein,Urine Trace mg/dL (Neg-Trace); Specific Gravity,Urine 1.018 (1.010-1.025); Squamous Epithelial Cell,Urine Few per hpf (None-Few); Transitional Epi Cells,Urine Few per hpf (None-Few); Urobilinogen,Urine Normal (Normal); WBC,Urine 15-30 per hpf (0-3)
[2021-02-26] MEDS: Piperacillin/Tazobactam 3.375 GM in 0.9 % Sodium Chloride Mini Bag 100 ML IVPB SCH ×2 (11:13→17:55)
[2021-02-26] MEDS: FentaNYL (PF) 1,000 MCG/100 ML IV.SOLN IVC SCH (11:57)
[2021-02-26] MEDS ORDERED: Vancomycin 1,250 MG/262.5 ML IV.SOLN IVPB SCH (12:00)
[2021-02-26] MEDS: Heparin 25,000UNIT/250ML 1/2NS 25,000 UNIT/250 ML IV.SOLN IVC SCH (12:43)
[2021-02-26 15:48] VITALS: TEMP 97.5
[2021-02-26 17:01] LABS: Thyroid Stimulating Hormone 0.607 mcIU/mL (0.340-5.600)
[2021-02-26] MEDS ORDERED: *HR* LORazepam 2 MG/ML VIAL IVP PRN (17:14)
[2021-02-26] MEDS ORDERED: *HR* LORazepam 2 MG/ML VIAL IVP SCH (17:30)
[2021-02-26 18:03] VITALS: PULSE 89
[2021-02-26 19:41] VITALS: BP 87/58
[2021-02-26] MEDS ORDERED: Atropine 1% Opth Drops 100 DROP/5 ML BOTTLE SL PRN (20:02)
[2021-02-26] MEDS ORDERED: Ondansetron 4 MG/2 ML VIAL IVP PRN (20:17)
[2021-02-26 20:36] VITALS: O2SAT 80
== END 2021-02-26 21:45 | disposition expired | DRG 870 ==
LOC: 2NENU → SUATTDRO 02-15 12:16 → 2NNU 02-19 02:22 → ICNU 02-21 16:39
PROVIDERS: ADMIT Student in an Organized Health Care Education/Training Program; ATTEND Internal Medicine